=== PATIENT | male | born 1995 | race Caucasian/White ===

== ENCOUNTER 2018-05-04 16:07 | Emergency (ER) | payer BC ==
--- NOTE | 2018-05-04 17:01 | RAD ---
LEFT WRIST 3 VIEWS: Date: 05/04/18 COMPARISON: None. HISTORY: Injury, trauma, pain. FINDINGS: No widening of the scapholunate interval. No displaced fracture or evidence of dislocation seen. If symptoms persist, a follow-up study in 7-10 days with dedicated scaphoid views advised. IMPRESSION: No displaced fracture or dislocation seen. POS: [facility]
[2018-05-04] MEDS ORDERED: Bacitracin Zinc 1 Packet ONE (17:13)
== END 2018-05-04 17:45 | disposition home or self-care (01) ==
LOC: ERS 16:07
DX: S00.81XA Abrasion of other part of head, initial encounter (principal); S80.212A Abrasion, left knee, initial encounter; S80.211A Abrasion, right knee, initial encounter; S60.512A Abrasion of left hand, initial encounter; S70.312A Abrasion, left thigh, initial encounter; S70.311A Abrasion, right thigh, initial encounter; S50.811A Abrasion of right forearm, initial encounter

== ENCOUNTER 2020-03-22 14:38 | Outpatient (CLI) | payer BC ==
--- NOTE | 2020-03-22 15:17 | CT ---
CT OF THE HEAD WITHOUT CONTRAST: 03/22/20 COMPARISON: 02/21/20. HISTORY: Ventriculoperitoneal shunt status. TECHNIQUE: Axial CT imaging obtained at 4.5 mm intervals from the vertex through the skull base without contrast . FINDINGS: Shunt tubing is present on the right inserted via a right frontal approach, with the distal tip of th e shunt tube extending into the region of the foramen of [place] just to the left of midline. The vent ricular shunt tubing has been retracted slightly when compared to the 02/21/20 exam. Bilateral lateral ventricles are decompressed, smaller than on the prior exam. The synthetic calvarial flap present on the prior examination in the right frontal region has been re moved and the [place] calvarial flap has been placed. Prior exam demonstrated significant CSF extendin g into the soft tissues of the scalp on the right with herniation of right frontal lobe through the c alvarial defect. These findings have resolved. There is a subdural collection which is primarily hypo dense deep to the craniotomy site measuring up to 1.2 cm with slight mass effect on the right frontal lobe. There is hypodensity involving the posterior parieto-occipital regions, right greater than left, less conspicuous than on the prior examination suggesting resolving areas of contusion or infarction. Hem orrhage seen on the prior examination along the course of the ventriculoperitoneal shunt tubing has r esolved. On this exam, there is no acute intracranial hemorrhage. There is mild herniation of tempora l lobe tissue into the soft tissues laterally in the middle cranial fossa on the right, which has imp roved. IMPRESSION: Ventriculoperitoneal shunt tubing as above. No acute hemorrhage. Hypodense subdural collection deep t o the craniotomy site on the right. Resolving infarct or contusion of bilateral parieto-occipital reg ions. Extensive postoperative change on the right. Continued follow-up advised. POS: [facility]
== END 2020-03-22 14:39 | disposition home or self-care (01) ==
LOC: TBSIIMAG 14:38
PROVIDERS: ATTEND Surgery
DX: Z48.811 Encounter for surgical aftercare following surgery on the nervous system (principal); Z98.2 Presence of cerebrospinal fluid drainage device
CPT/HCPCS: 70450

== ENCOUNTER 2021-02-16 09:23 | Outpatient (CLI) | payer BC | END 2021-02-16 09:24 | disposition home or self-care (01) | LOC: CT 09:23 | PROVIDERS: ATTEND Surgery | DX: G91.9 Hydrocephalus, unspecified (principal); Z98.890 Other specified postprocedural states | CPT/HCPCS: 70450 ==